=== PATIENT | male | born 1970 | race Caucasian/White ===

== ENCOUNTER 2018-12-27 16:01 | Emergency (ER) | payer SELFPAY ==
[~2018-12-27] VITALS: Ht 177.8 cm; Wt 76.2 kg
[2018-12-27 16:36] LABS: Urine Bacteria NONE SEEN /hpf (None Seen); Urine Blood Negative /uL (Negative); Urine Specific Gravity 1.018 (1.001-1.035); Urine WBC 1 /hpf (0 - 3)
[2018-12-27 16:51] LABS: Basophils # (auto) 0 uL; Basophils % (auto) 0.3 % (0.0-2.0); Eosinophils # (auto) 0 uL; Hemoglobin 13.2 g/dL (13.5-17.5); Lymphocytes # (auto) 0.4 uL
[2018-12-27 16:53] LABS: Hematocrit 37.8 % (41.0-53.0); Lymphocytes % (auto) 3.4 % (10.0-50.0); Mean Corpuscular Hemoglobin 35.2 pg (28.0-32.0); Mean Corpuscular Hgb Conc. 34.8 g/dL (32.0-36.0); Monocytes # (auto) 0.8 uL; Monocytes % (auto) 8.1 % (0.0-12.0); Neutrophils # (auto) 9.1 uL; Neutrophils % (auto) 88.2 % (37.0-80.0); Nucleated Red Blood Cells % 0.1 %; Platelet Count (auto) 254 10^3/uL (140-450); Red Blood Cells 3.74 10^6/uL (4.5-5.90); Red Cell Distribution Width 13.2 % (11.8-14.3); White Blood Cell 10.4 10^3/uL (4.4-10.8)
[2018-12-27 17:03] LABS: Alcohol, Urine < 3.0 mg/dL (0-5); Amphetamine Screen, Urine NEGATIVE (NEGATIVE); Barbiturate Scree,Urine NEGATIVE (NEGATIVE); Benzodiazephine Screen, Urine NEGATIVE (NEGATIVE); Cannabinoid Screen, Urine POSITIVE (NEGATIVE); Cocaine Screen, Urine NEGATIVE (NEGATIVE); Opiate Scree,Urine NEGATIVE (NEGATIVE); Phencyclidine Screen, Urine NEGATIVE (NEGATIVE)
[2018-12-27] MEDS ORDERED: SODIUM CHLORIDE 0.9% 2,000 ML IV ONE (17:15)
[2018-12-27 17:27] LABS: Anion Gap 11 (5-15); BUN/Creatinine Ratio 12.6; Blood Urea Nitrogen 12 mg/dL (7-18); Carbon Dioxide 24 mmol/L (21-32); Chloride 96 mmol/L (98-107); GFR African American 108 mL/min; GFR Non-African American 90 mL/min; Glucose 93 mg/dL (74-106); Magnesium 1.5 mg/dL (1.6-2.6); Potassium 3.4 mmol/L (3.5-5.1); Sodium 131 mmol/L (136-145)
[2018-12-27 17:33] LABS: Alanine Aminotransferase 47 U/L (16-61); Alkaline Phosphatase 56 U/L (45-117); Aspartate Aminotransferase 38 U/L (15-37); Bilirubin, Total 0.7 mg/dL (0.2-1.0); Total Protein 7.1 g/dL (6.4-8.2)
[2018-12-27] MEDS ORDERED: POTASSIUM EFFERVESENT TAB 25 MEQ PO ONE (18:15)
[2018-12-27] MEDS: MAGNESIUM SULFATE 1GM/100ML 100 ML IV SCH ×2 (18:25→20:27)
[2018-12-27 22:07] VITALS: BP 113/77
== END 2018-12-27 22:09 | disposition home or self-care (01) ==
LOC: EDBD 16:01 → ER 16:01
DX: T67.5XXA Heat exhaustion, unspecified, initial encounter (principal); F12.10 Cannabis abuse, uncomplicated; E87.6 Hypokalemia; E83.42 Hypomagnesemia
CPT/HCPCS: 36415; 80053; 80307; 81001; 83735; 84484; 85025; 93005; 94761; 96361; 96365; 96366; 99284; J3475; J7030